=== PATIENT | male | born 1950 | race Caucasian/White ===

== ENCOUNTER 2020-03-30 06:15 | Inpatient (IN) | payer MEDICARE ==
[~2020-03-30] VITALS: Ht 167.6 cm; Wt 68.5 kg
[~2020-03-30 06:15] MED LIST: ALPR-341 PO; CeFAZolin 2 GM/DEXTROSE 0 ML IV ONE; CeFAZolin 2 GM/DEXTROSE 50 ML IV ONE; HYDR-4455 PO; LISI-661 PO; RINGERS SOLUTION,LACTATED 1,000 ML IV ONE; TRAM50TA2 PO
[2020-03-30 06:55] LABS: BASOPHILS % (AUTO) 0.8 % (0.0-2.0); EOSINOPHILS % (AUTO) 4.7 % (1.0-6.0); HEMATOCRIT 44.9 % (41-53); HEMOGLOBIN 15.2 g/dL (13.5-17.5); LYMPHOCYTES # (AUTO) 1.3 K/uL (1.0-4.8); LYMPHOCYTES % (AUTO) 21.2 % (22.0-44.0); MEAN CORPUSCULAR HEMOGLOBIN 30.8 pg (26.0-34.0); MEAN CORPUSCULAR HGB CONC 33.9 G/dL (31.0-37.0); MEAN CORPUSCULAR VOLUME 91 fL (80-100); MONOCYTES # (AUTO) 1.1 K/uL (0.1-1.0); MONOCYTES % (AUTO) 17.5 % (2.0-9.0); NEUTROPHILS # (AUTO) 3.4 K/uL (1.8-7.7); NEUTROPHILS % (AUTO) 55.8 % (40.0-70.0); PLATELET COUNT (AUTO) 229 K/uL (150-450); RED BLOOD CELL COUNT(AUTO) 4.95 MIL/uL (4.50-5.90)
[2020-03-30 07:03] LABS: ANION GAP 9 mmol/L (8-16); CALCIUM, TOTAL 9.1 mg/dL (8.8-10.5); CARBON DIOXIDE 28 mmol/L (22-29); CHLORIDE 103 mmol/L (98-107); GLOMERULAR FILTR. RATE CALC > 60 mL/min (>60); GLUCOSE,RANDOM 101 mg/dL (70-110); POTASSIUM 3.8 mmol/L (3.5-5.1); SODIUM SERUM 140 mmol/L (136-145); UREA NITROGEN, BLOOD 16 mg/dL (7-18)
[2020-03-30] MEDS ORDERED: BUPIVACAINE LIPOSOME/PF 1.3%-13.3MG/ML SUSPENSION 20 ML VIAL INJ ONE (07:15)
[2020-03-30 07:33] LABS: INR 1.1 (0.9-1.1); PROTHROMBIN TIME 11.2 SEC (9.4-11.6)
[2020-03-30] MEDS ORDERED: ZOLPIDEM TARTRATE 10 MG TABLET PO PRN (07:45)
[2020-03-30] MEDS ORDERED: ONDANSETRON HCL 4 MG/2 ML VIAL IVP PRN (07:45)
[2020-03-30] MEDS ORDERED: BENZOCAINE/MENTHOL LOZENGE PO PRN (07:45)
[2020-03-30] MEDS ORDERED: MAG HYDROX/AL HYDROX/SIMETH 30 ML SUSP UDCUP PO PRN (07:45)
[2020-03-30] MEDS ORDERED: DiphenhydrAMINE HCL 50 MG/ML VIAL IVP PRN (07:45)
[2020-03-30] MEDS ORDERED: METOPROLOL SUCCINATE 25 MG ER TABLET PO SCH (13:00)
[2020-03-30] MEDS ORDERED: ALPR0.5T8 PO (13:27)
[2020-03-30] MEDS: METOPROLOL TARTRATE 25 MG TABLET PO SCH ×2 (14:22→21:06)
[2020-03-30] MEDS: DOCUSATE SODIUM 100 MG CAPSULE PO SCH ×2 (14:22→21:00)
[2020-03-30 14:53] VITALS: BP 133/101
[2020-03-30] MEDS ORDERED: TraMADol HCL 50 MG TABLET PO PRN (17:30)
[2020-03-30] MEDS ORDERED: AMIODARONE HCL 360 MG in DEXTROSE 5%-WATER 242.8 ML IV ONE (17:30)
[2020-03-30] MEDS ORDERED: AMIODARONE HCL 150 MG in DEXTROSE 5%-WATER 97 ML IV ONE (17:30)
[2020-03-30] MEDS ORDERED: SODIUM CHLORIDE 0.9% 500 ML IV ONE (19:55)
[2020-03-30 20:10] VITALS: BP 119/81
[2020-03-30] MEDS: ALPRAZolam 0.5 MG TABLET PO SCH (21:06)
[2020-03-31] MEDS ORDERED: AMIODARONE HCL 540 MG in DEXTROSE 5%-WATER 239.2 ML IV ONE ×2
[2020-03-31 00:17] VITALS: BP 121/63
[2020-03-31 04:34] VITALS: BP 133/67
[2020-03-31] MEDS ORDERED: RINGERS SOLUTION,LACTATED 1,000 ML IV ONE (06:15)
[2020-03-31] MEDS ORDERED: BUPIVACAINE LIPOSOME/PF 1.3%-13.3MG/ML SUSPENSION 20 ML VIAL INJ ONE (06:45)
[2020-03-31] MEDS ORDERED: SODIUM CHLORIDE 0.9% 1,000 ML ONE (06:54)
[2020-03-31] MEDS ORDERED: BUPIVACAINE HCL/PF 0.25% 30 ML VIAL ONE (07:58)
[2020-03-31] MEDS ORDERED: BUPIVACAINE HCL/PF 0.5% 30 ML VIAL ONE (07:58)
[2020-03-31] MEDS ORDERED: CYCLOBENZAPRINE HCL 10 MG TABLET PO PRN (08:15)
[2020-03-31] MEDS ORDERED: ONDANSETRON HCL 4 MG/2 ML VIAL IVP PRN (08:15)
[2020-03-31] MEDS ORDERED: OxyCODONE HCL 5 MG IR TABLET PO PRN (08:15)
[2020-03-31] MEDS ORDERED: HYDROmorphone 2 MG/ML SYRINGE IVP PRN (08:15)
[2020-03-31] MEDS ORDERED: ZOLPIDEM TARTRATE 5 MG TABLET PO PRN (08:15)
[2020-03-31] MEDS ORDERED: ALPRAZolam 0.5 MG TABLET PO SCH (09:00)
[2020-03-31] MEDS ORDERED: TraMADol HCL 50 MG TABLET PO SCH (09:00)
[2020-03-31] MEDS ORDERED: SUGAMMADEX SODIUM 200 MG/2 ML VIAL IVP ONE (09:12)
[2020-03-31] MEDS: HYDROCODONE/ACETAMINOPHEN 10-325 MG TABLET PO PRN ×3 (11:09→20:24)
[2020-03-31] MEDS: DOCUSATE SODIUM 100 MG CAPSULE PO SCH ×2 (11:11→21:00)
[2020-03-31 11:31] VITALS: BP 150/97
[2020-03-31] MEDS: LISINOPRIL 10 MG TABLET PO SCH (12:15)
[2020-03-31] MEDS: METOPROLOL SUCCINATE 50 MG ER TABLET PO SCH (12:15)
[2020-03-31] MEDS: ACETAMINOPHEN 1000 MG/ISO-OSM 100 ML IV SCH ×2 (13:00→17:56)
[2020-03-31 15:17] VITALS: BP 148/93
[2020-03-31] MEDS ORDERED: AMIODARONE HCL 750 MG in DEXTROSE 5%-WATER 485 ML IV SCH (18:00)
[2020-03-31] MEDS: ALPRAZolam 0.5 MG TABLET PO SCH (20:22)
[2020-03-31 20:24] VITALS: BP 131/98
[2020-04-01] MEDS: ACETAMINOPHEN 1000 MG/ISO-OSM 100 ML IV SCH (00:28)
[2020-04-01] MEDS ORDERED: HYDROmorphone 2 MG/ML SYRINGE IVP ONE (05:56)
[2020-04-01] MEDS ORDERED: PROPOFOL 1% 20 ML VIAL IVP ONE (05:56)
[2020-04-01] MEDS ORDERED: LIDOCAINE/PF 2% 5 ML VIAL IM ONE (05:56)
[2020-04-01] MEDS ORDERED: 0.9% SODIUM CHLORIDE 10 ML VIAL IVP ONE (05:56)
[2020-04-01] MEDS ORDERED: PHENYLEPHRINE HCL 10 MG/ML VIAL IVP ONE (05:56)
[2020-04-01] MEDS ORDERED: DEXAMETHASONE SOD PHOS 4 MG/ML VIAL IVP ONE (05:56)
[2020-04-01] MEDS ORDERED: ROCURONIUM BROMIDE 10 MG/ML 5 ML VIAL IVP ONE (05:56)
[2020-04-01] MEDS ORDERED: FentaNYL CITRATE-PF 100 MCG/2 ML VIAL IVP ONE (05:56)
[2020-04-01] MEDS ORDERED: SUCCINYLCHOLINE CHLORIDE 20 MG/ML 10 ML VIAL IVP ONE (05:56)
[2020-04-01 06:26] VITALS: BP 125/64
[2020-04-01] MEDS ORDERED: HYDROCODONE/ACETAMINOPHEN 10-325 MG TABLET PO PRN (07:00)
[2020-04-01] MEDS: LISINOPRIL 10 MG TABLET PO SCH (08:15)
[2020-04-01] MEDS: METOPROLOL SUCCINATE 50 MG ER TABLET PO SCH (08:15)
[2020-04-01] MEDS: DOCUSATE SODIUM 100 MG CAPSULE PO SCH (08:18)
[2020-04-01] MEDS ORDERED: METO-558 PO (09:48)
[2020-04-01] MEDS ORDERED: METO-391 PO (11:32)
[2020-04-01] MEDS ORDERED: CYCL10 PO (11:32)
== END 2020-04-01 12:15 | disposition home or self-care (01) | DRG 460 ==
LOC: 4E 06:15 → 5S 13:30
PROVIDERS: ADMIT Orthopaedic Surgery Orthopaedic Surgery of the Spine; ATTEND Orthopaedic Surgery Orthopaedic Surgery of the Spine
PROC: 0SB20ZZ Excision of Lumbar Vertebral Disc, Open Approach (ICD-10-PCS; 2020-03-31)
PROC: BR191ZZ Fluoroscopy of Lumbar Spine using Low Osmolar Contrast (ICD-10-PCS; 2020-03-31)
PROC: 0SG00A0 Fusion of Lumbar Vertebral Joint with Interbody Fusion Device, Anterior Approach, Anterior Column, Open Approach (ICD-10-PCS; principal; 2020-03-31 07:30)
DX: M48.061 Spinal stenosis, lumbar region without neurogenic claudication (principal); I10 Essential (primary) hypertension; Z95.818 Presence of other cardiac implants and grafts; I48.91 Unspecified atrial fibrillation; R00.0 Tachycardia, unspecified; Z88.8 Allergy status to other drugs, medicaments and biological substances; F41.9 Anxiety disorder, unspecified; Z03.818 Encounter for observation for suspected exposure to other biological agents ruled out; I25.10 Atherosclerotic heart disease of native coronary artery without angina pectoris
CPT/HCPCS: 72100; 87081; 93005; 93306; 97116; 97161; 97530; C9290; G0378; J0131; J0282; J0330; J0690; J1100; J1170; J2370; J2704; J3010; J3490; J7030; J7040; J7060; J7120